=== PATIENT | male | born 1945 | race African-American/Black ===

== ENCOUNTER 2020-04-19 23:06 | Emergency (ER) | payer OTHER ==
[~2020-04-19] VITALS: Ht 182.9 cm; Wt 77.3 kg
[2020-04-19 23:43] LABS: BASO % 1 % (0-3); EOS # 0.1 x10^3/uL (0.0-0.7); EOS % 3 % (0-3); HEMATOCRIT 44.6 % (39.0-53.0); HEMOGLOBIN 15.1 g/dL (13.0-17.5); LYMPH # 1.4 x10^3/uL (1.0-4.8); LYMPH % 31 % (24-48); MEAN CORPUSCULAR HEMOGLOBIN 33 pg (25-35); MEAN CORPUSCULAR HGB CONC 34 g/dL (31-37); MEAN CORPUSCULAR VOLUME 97 fL (79-100); MONO # 0.6 x10^3/uL (0.0-1.1); MONO % 12 % (0-9); NEUT # 2.4 x10^3/uL (1.8-7.7); NEUT % 53 % (31-73); PLATELET COUNT 214 x10^3/uL (140-400); RED BLOOD COUNT 4.62 x10^6/uL (4.30-5.70); RED CELL DISTRIBUTION WIDTH 14.4 % (11.5-14.5); WHITE BLOOD COUNT 4.5 x10^3/uL (4.0-11.0)
[2020-04-19 23:55] LABS: CALCIUM 9.2 mg/dL (8.5-10.1); CREATININE 1.5 mg/dL (0.7-1.3); GFR 55.7; POTASSIUM 3.3 mmol/L (3.5-5.1)
[2020-04-20 00:01] LABS: ALBUMIN 3.5 g/dL (3.4-5.0); ALBUMIN/GLOBULIN RATIO 0.9 (1.0-1.7); TOTAL BILIRUBIN 1.3 mg/dL (0.2-1.0); TOTAL PROTEIN 7.4 g/dL (6.4-8.2)
--- NOTE | 2020-04-20 00:42 | RAD ---
CHEST AP ONLY Clinical Indication: Reason: syncope / Spl. Instructions: / History: Comparison: None. Findings: Cardiac size upper limits of normal. There are calcified right hilar lymph nodes. Lungs are clear. There is no pneumothorax. No pleural effusion is appreciated. No acute bone abnormality. Chronic deformity of the proximal right humerus. IMPRESSION: No acute cardiopulmonary process. Electronically signed by: Kole Barrera MD (04/20/2020 12:40 AM) [facility]ITAL[facility]
--- NOTE | 2020-04-20 01:12 | PHYS DOC ---
Past Medical History Past Medical History: Hypertension Past Surgical History: No Surgical History Smoking Status: Former Smoker Alcohol Use: Heavy Additional Information: 1-2 DRINKS/ DAY REPORTS DRINKING [place] AND A BEER TONIGHT. General Adult EDM: Chief Complaint: SYNCOPE HPI: HPI: The history was obtained from the patient. Patient is a 74-year-old male with PMH hypertension who presents with a chief complaint of syncope. Per the patient had a syncopal event while sitting down 3 hours prior to arrival. She states for approximately 5 to 10 minutes he seemed unresponsive. Patient does not remember any of these events. He states that he thinks he was sleeping. He denies any chest pain or shortness of breath. Denies any headaches. States he has no complaints whatsoever. Denies any history of syncope. Denies any history of cardiac disease or invasive work-up. Denies any fevers or vomiting recently. Denies any alcohol or drug usage. states they did initially called the ambulance when the event occurred but the patient did not want to come to the hospital. She states she was eventually able to convince him to report. No other complaints. Review of Systems: Review of Systems: Constitutional: Denies fever or chills. [] Eyes: Denies change in visual acuity. [] HENT: Denies nasal congestion or sore throat. [] Respiratory: Denies cough or shortness of breath. [] Cardiovascular: Positive for syncope GI: Denies abdominal pain, nausea, vomiting, bloody stools or diarrhea. [] : Denies dysuria. [] Musculoskeletal: Denies back pain or joint pain. [] Integument: Denies rash. [] Neurologic: Denies headache, focal weakness or sensory changes. [] Endocrine: Denies polyuria or polydipsia. [] Lymphatic: Denies swollen glands. [] Psychiatric: Denies depression or anxiety. [] Heart Score: Risk Factors: Risk Factors: DM, Current or recent (<one month) smoker, HTN, HLP, family history of CAD, obesity. Risk Scores: Score 0 - 3: 2.5% MACE over next 6 weeks - Discharge Home Score 4 - 6: 20.3% MACE over next 6 weeks - Admit for Clinical Observation Score 7 - 10: 72.7% MACE over next 6 weeks - Early Invasive Strategies Allergies: Allergies: Allergies Coded Allergies Type Severity Reaction Last Updated Verified No Known Drug Allergies 9/10/20 No Physical Exam: PE: Constitutional: Well developed, well nourished, no acute distress, non-toxic appearance. [] HENT: Normocephalic, atraumatic, bilateral external ears normal, oropharynx moist, no oral exudates, nose normal. [] Eyes: PERRLA, EOMI, conjunctiva normal, no discharge. [] Neck: Normal range of motion, no tenderness, supple, no stridor. [] Cardiovascular:Heart rate regular rhythm, no murmur [] Lungs & Thorax: Bilateral breath sounds clear to auscultation [] Abdomen: soft, no tenderness, no masses, no pulsatile masses. [] Skin: Warm, dry, no erythema, no rash. [] Back: No tenderness, no CVA tenderness. [] Extremities: No tenderness, no cyanosis, no clubbing, ROM intact, no edema. [] Neurologic: Alert with intact cognitive function. No aphasia, dysarthria, or neglect. GCS 15. Pupils 3 mm briskly reactive b/l. No APD present. Cranial nerves 2-12 grossly intact; no facial asymmetry present, tongue midline, shoulder shrugging strength intact. Strength 5/5 and symmetric throughout. Light touch sensation intact throughout. Cerebellar testing appropriate without e vidence of dysdiadochokinesia. DTR's 2+ in all 4 extremities. Negative pronator drift bilaterally. Gait normal Psychologic: Affect normal, judgement normal, mood normal. [] Current Patient Data: Labs: Laboratory Tests Test 04/19/20 23:35 White Blood Count 4.5 x10^3/uL (4.0-11.0) Red Blood Count 4.62 x10^6/uL (4.30-5.70) Hemoglobin 15.1 g/dL (13.0-17.5) Hematocrit 44.6 % (39.0-53.0) Mean Corpuscular Volume 97 fL (79-100) Mean Corpuscular Hemoglobin 33 pg (25-35) Mean Corpuscular Hemoglobin Concent 34 g/dL (31-37) Red Cell Distribution Width 14.4 % (11.5-14.5) Platelet Count 214 x10^3/uL (140-400) Neutrophils (%) (Auto) 53 % (31-73) Lymphocytes (%) (Auto) 31 % (24-48) Monocytes (%) (Auto) 12 % (0-9) H Eosinophils (%) (Auto) 3 % (0-3) Basophils (%) (Auto) 1 % (0-3) Neutrophils # (Auto) 2.4 x10^3/uL (1.8-7.7) Lymphocytes # (Auto) 1.4 x10^3/uL (1.0-4.8) Monocytes # (Auto) 0.6 x10^3/uL (0.0-1.1) Eosinophils # (Auto) 0.1 x10^3/uL (0.0-0.7) Basophils # (Auto) 0.0 x10^3/uL (0.0-0.2) Sodium Level 140 mmol/L (136-145) Potassium Level 3.3 mmol/L (3.5-5.1) L Chloride Level 104 mmol/L (98-107) Carbon Dioxide Level 26 mmol/L (21-32) Anion Gap 10 (6-14) Blood Urea Nitrogen 12 mg/dL (8-26) Creatinine 1.5 mg/dL (0.7-1.3) H Estimated GFR (Cockcroft-Gault) 55.7 BUN/Creatinine Ratio 8 (6-20) Glucose Level 110 mg/dL (70-99) H Calcium Level 9.2 mg/dL (8.5-10.1) Total Bilirubin 1.3 mg/dL (0.2-1.0) H Aspartate Amino Transferase (AST) 27 U/L (15-37) Alanine Aminotransferase (ALT) 21 U/L (16-63) Alkaline Phosphatase 290 U/L (46-116) H Troponin I Quantitative < 0.017 ng/mL (0.000-0.055) Total Protein 7.4 g/dL (6.4-8.2) Albumin 3.5 g/dL (3.4-5.0) Albumin/Globulin Ratio 0.9 (1.0-1.7) L Laboratory Tests 04/19/20 23:35 Laboratory Tests 04/19/20 23:35 Vital Signs: Vital Signs Date Time Temp Pulse Resp B/P (MAP) Pulse Ox O2 Delivery O2 Flow Rate FiO2 04/19/20 23:13 98.0 61 21 171/97 (121) 98 Room Air 98.0 EKG: EKG: EKG consistent with normal sinus rhythm. Ventricular rate of 66 bpm. Mora normal. Low QRS voltage noted in inferior leads. No acute ischemic changes appreciated. [] Radiology/Procedures: Radiology/Procedures: [][facility] [address] [place] [address] IMAGING REPORT Signed PATIENT: MELBA MONTES ACCOUNT: [id number] : 1945 LOCATION: ER AGE: 74 SEX: M EXAM STATUS: REG ER ORD. PHYSICIAN: BROCK RM DO REASON: syncope PROCEDURE: CHEST AP ONLY CHEST AP ONLY Clinical Indication: Reason: syncope / Spl. Instructions: / History: Comparison: None. Findings: Cardiac size upper limits of normal. There are calcified right hilar lymph nodes. Lungs are clear. There is no pneumothorax. No pleural effusion is appreciated. No acute bone abnormality. Chronic deformity of the proximal right humerus. IMPRESSION: No acute cardiopulmonary process. Electronically signed by: Kole Barrera MD (04/20/2020 12:40 AM) [facility] DICTATED and SIGNED BY: KOLE BARRERA MD DATE: 04/20/2039 Course & Med Decision Making: Course & Med Decision Making Pertinent Labs and Imaging studies reviewed. (See chart for details) [] Patient is a 74-year-old male who presents with a concern of syncope from . Initial vital signs unremarkable. Initial EKG without acute ischemic changes. Basic labs were obtained. Does have a mildly elevated creatinine presumably from high blood pressure. Remainder of labs unremarkable. On my repeat examination he is awake and alert. His examination including neuro exam remains unchanged. I did engage patient in a lengthy discussion regarding results of labs and imaging. I did overall recommend a head CT given his synco pal event and age. He is declining at this time. I also recommended hospitalization for further evaluation given his age, abnormal kidney function, and possible syncope. He is declining hospitalization at this time and states that he would like to follow-up with his primary care physician tomorrow. I did explain the patient that I cannot fully exclude life or limb threat at this time. I did highly recommend hospitalization. He is declining at this time. He does appear to have capacity. He is alert and oriented x3. He does appear to have understanding is basic health care needs and potential consequences including but not limited to life threat. at bedside states she will watch him closely at home. At this time he is electing to leave AGAINST MEDICAL ADVICE. He was encouraged to report back to the emergency department at any time should he want to be reevaluated. Dragon Disclaimer: Dragon Disclaimer: This electronic medical record was generated, in whole or in part, using a voice recognition dictation system. Departure Departure Impression: Primary Impression: Syncope Qualified Codes: R55 - Syncope and collapse Additional Impressions: Hypertension Qualified Codes: I10 - Essential (primary) hypertension PAMELA (acute kidney injury) Disposition: 07 AGAINST MEDICAL ADVICE Condition: STABLE Referrals: OLGA COLUNGA MD (PCP) Patient Instructions: Syncope Additional Instructions: Please follow-up with your primary care physician in the next 2 to 3 days. Justicifation of Admission Dx: Justifications for Admission: Justification of Admission Dx: N/A BROCK RM DO Apr 20, 2020 01:12
[2020-04-20 01:45] VITALS: BP 180/92
--- NOTE | 2020-04-20 07:17 | EKG ---
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
== END 2020-04-20 01:55 | disposition left against medical advice (07) ==
LOC: ER 23:06
DX: R55 Syncope and collapse (principal); I10 Essential (primary) hypertension; N17.9 Acute kidney failure, unspecified; Z87.891 Personal history of nicotine dependence; F10.20 Alcohol dependence, uncomplicated; Y90.9 Presence of alcohol in blood, level not specified
CPT/HCPCS: 36415; 71045; 80053; 84484; 85025; 93005; 99285

== ENCOUNTER → 2020-07-13 | Outpatient (CLI) | payer MEDICARE ==
[~2020-07-13] MED LIST: IOHEXOL 300 MG/ML 100ML VIAL. IV ONE
--- NOTE | 2020-07-13 16:46 | RAD ---
EXAM: Abdomen CT with intravenous contrast. HISTORY: Hyperbilirubinemia. TECHNIQUE: Computed tomographic images of the abdomen were obtained following the administration of intravenous contrast. Multiplanar reformatting was performed. *One or more of the following individualized dose reduction techniques were utilized for this examination: 1. Automated exposure control. 2. Adjustment of the mA and/or kV according to patient size. 3. Use of iterative reconstruction technique. COMPARISON: None. FINDINGS: Evaluation of the lower thorax demonstrates atelectasis and right middle lobe pleural proximal scarring. There is mild cardiomegaly. No suspicious hepatic lesion is seen. The gallbladder, pancreas, spleen, adrenal glands and kidneys are unremarkable. There is no appendicitis within the visualized portions of the appendix. There is increased colonic wall fat, a finding which can be seen as a sequela of prior inflammation. There is no evidence of acute colitis. There is distal colonic diverticulosis. There is fatty stranding within the root of the mesentery and there are multiple prominent mesenteric lymph nodes. The largest of these measures 9 mm. There are sclerotic changes within the lower lumbar spine and left iliac bone, partially included on the [id number]. This is stable compared to a CT dated 11/21/2018. There are disc bulges and there is endplate remodeling at the lower lumbar levels. This results in severe right foraminal stenosis at L4-L5. IMPRESSION: 1. No findings correlate with hyperbilirubinemia. MRCP may be useful if there is concern for an occult lesion. 2. Colonic diverticulosis. 3. Stranding within the root of mesentery and multiple prominent mesenteric lymph nodes. This is stable compared to a remote study dated 11/21/2018, favoring benignity. 4. Stable sclerotic changes involving the lower lumbar spine and left iliac bone. The long-term stability favors a benign etiology such as Paget's disease. Electronically signed by: Jayne Ramírez MD (07/13/2020 3:47 PM) [facility]
== END ==
LOC: CT 09:07
PROVIDERS: ATTEND Internal Medicine
DX: K57.30 Diverticulosis of large intestine without perforation or abscess without bleeding (principal); M48.061 Spinal stenosis, lumbar region without neurogenic claudication
CPT/HCPCS: 74160; Q9967